=== PATIENT | female | born 1940 | race African-American/Black ===

== ENCOUNTER → 2017-12-11 | Outpatient (CLI) | payer MEDICARE ==
[~2017-12-11] MED LIST: CEPH-460 PO; LISI-515 PO
--- NOTE | 2017-12-11 20:46 | EKG ---
Date Performed: 12/11/2017 Time Performed: 13:08:50 PTAGE: 77 years EKG: Possible ectopic atrial bradycardia. Lateral ST changes are nonspecific Borderline ECG PREVIOUS TRACING : 06/19/2010 13.51 Compared to previous tracing, heart rate has decreased. DOCTOR: Kermit Red Interpretating Date/Time 12/11/2017 20:46:00
== END ==
LOC: HCAV 12:33
PROVIDERS: ATTEND Ophthalmology
DX: Z01.810 Encounter for preprocedural cardiovascular examination (principal); H25.11 Age-related nuclear cataract, right eye
CPT/HCPCS: 93005